=== PATIENT | female | born 1965 | race Asian ===

== ENCOUNTER 2019-06-05 16:11 | Emergency (ER) | payer OTHER ==
[~2019-06-05] VITALS: Ht 162.6 cm; Wt 73.0 kg
[2019-06-05 16:24] VITALS: BP 177/79; Ht 162.6 cm; Wt 73.0 kg
== END 2019-06-05 16:58 | disposition home or self-care (01) ==
LOC: ED 16:11
DX: S93.401A Sprain of unspecified ligament of right ankle, initial encounter (principal); W18.40XA Slipping, tripping and stumbling without falling, unspecified, initial encounter; Y93.89 Activity, other specified; Y92.89 Other specified places as the place of occurrence of the external cause; Y99.8 Other external cause status